=== PATIENT | male | born 1970 | race Caucasian/White ===

== ENCOUNTER 2018-11-18 15:13 | Inpatient (IN) | payer OTHER ==
[~2018-11-18] VITALS: Ht 182.9 cm; Wt 141.3 kg
[~2018-11-18 15:13] MED LIST: ASPERCREME1 EACH TP; DUO-KAPS1 CAP PO; FOLIC ACID 11 MG/TA1 PO; LIBRIUM 10M10 MG/CAP PO; MOTRIN 200200 MG/TAB PO; NICODERM C21 MG/PATC TD; PREDNISONE10 MG PO; PREDNISONE20 MG PO; RT ALBUTER2.5 MG/0.5 IH; THIAMINE 1100 MG/TAB PO; ZITHROMAX Z PA250 MG PO; ZOLOFT 25MG25 MG PO
[2018-11-18 16:14] LABS: INR 0.9 (0.8-3.0)
[2018-11-18 16:16] LABS: BASO % 0.2 % (0.0-2.0); EOS # 0.1 (0.0-0.7); EOS % 0.5 % (0-4.0); GRAN # 7.5 (1.4-6.5); GRAN % 76.9 % (42.2-75.2); HEMATOCRIT 42.8 % (42.0-52.0); HEMOGLOBIN 15.6 g/dl (13.5-18.0); LYMPH # 1.5 (1.2-3.4); LYMPH % 15.5 % (20.0-51.0); MEAN CELL VOLUME 95 fl (80.0-100.0); MEAN CORPUSCULAR HEMOGLOBIN 35 pg (27.0-31.0); MEAN CORPUSCULAR HGB CONC 36 g/dl (33.0-37.0); MEAN PLATELET VOLUME 9.1 fl (7.4-10.4); MONO # 0.6 (0.1-0.6); MONO % 6.5 % (1.7-9.3); PLATELET COUNT 145 K/mm3 (130-400); RED BLOOD COUNT 4.49 M/mm3 (4.20-5.60); REDCELL DISTRIBUTION WIDTH-CV 13.4 % (11.5-14.5)
[2018-11-18 16:19] LABS: ALANINE AMINOTRANSFERASE 42 U/L (21-72); ALBUMIN 4.3 gm/dL (3.5-5.0); ALKALINE PHOSPHATASE 70 U/L (50-136); ANION GAP 14 mmol/L (7-16); AST,SGOT 44 U/L (15-37); BILIRUBIN,TOTAL 0.9 mg/dL (0.0-1.0); BLOOD UREA NITROGEN 7 mg/dL (9-20); CALCIUM 9.5 mg/dL (8.4-10.2); CARBON DIOXIDE 23 mmol/L (22-30); CHLORIDE 103 mmol/L (98-107); GLUCOSE 90 mg/dL (74-106); LIPASE 35 U/L (23-300); SODIUM 140 mmol/L (137-145); TOTAL PROTEIN 7.4 gm/dL (6.4-8.2)
[2018-11-18 16:33] LABS: ALCOHOL(ethanol),MEDICAL < 10 mg/dL
[2018-11-18 20:32] LABS: ACETAMINOPHEN < 10 ug/mL (10-30); SALICYLATE < 1.0 mg/dL
[2018-11-18 20:47] VITALS: BP 146/92; PULSE 110; TEMP 98.7
[2018-11-18 21:03] LABS: TSH w REFLEX 0.602 uIU/mL (0.465-4.680)
[2018-11-18 21:55] VITALS: BP 148/89; PULSE 94; TEMP 99.4
[2018-11-19] VITALS (13 sets, daily range): BP systolic 106–168; BP diastolic 71–115; PULSE 88–120; TEMP 97.7–98.8
[2018-11-19 07:01] LABS: BASO % 0.3 % (0.0-2.0); EOS # 0.2 (0.0-0.7); EOS % 2.6 % (0-4.0); GRAN # 4.5 (1.4-6.5); HEMATOCRIT 40.8 % (42.0-52.0); HEMOGLOBIN 14.2 g/dl (13.5-18.0); LYMPH # 1.5 (1.2-3.4); LYMPH % 22.6 % (20.0-51.0); MEAN CELL VOLUME 98 fl (80.0-100.0); MEAN CORPUSCULAR HEMOGLOBIN 34 pg (27.0-31.0); MEAN CORPUSCULAR HGB CONC 35 g/dl (33.0-37.0); MEAN PLATELET VOLUME 9.2 fl (7.4-10.4); MONO # 0.4 (0.1-0.6); MONO % 6.2 % (1.7-9.3); PLATELET COUNT 112 K/mm3 (130-400); RED BLOOD COUNT 4.15 M/mm3 (4.20-5.60); REDCELL DISTRIBUTION WIDTH-CV 13.8 % (11.5-14.5)
[2018-11-19 07:09] LABS: ALBUMIN 3.5 gm/dL (3.5-5.0); BILIRUBIN,TOTAL 0.8 mg/dL (0.0-1.0); CALCIUM 8.5 mg/dL (8.4-10.2); CREATININE, serum 0.7 (0.66-1.25); TOTAL PROTEIN 6.2 gm/dL (6.4-8.2)
[2018-11-19 09:15] LABS: COLLECTION METHOD CLEAN CATCH
[2018-11-19 09:21] LABS: MUCOUS Present /lpf; PH 6 (5-8); SQUAMOUS EPITHELIAL 0-2 /hpf; URINE APPEARANCE Clear; URINE BACTERIA None Seen /hpf; URINE BILIRUBIN Negative (NEGATIVE); URINE BLOOD Negative (NEGATIVE); URINE COLOR Yellow; URINE GLUCOSE Negative (NEGATIVE); URINE KETONE Trace (NEGATIVE); URINE LEUKOCYTE ESTERASE Negative (NEGATIVE); URINE NITRATE Negative (NEGATIVE); URINE PROTEIN(semi-quant) Negative (NEGATIVE); URINE RBC 0-2 /hpf; URINE UROBILINOGEN Negative (NEGATIVE)
[2018-11-19 09:31] LABS: TRICYCLIC ANTIDEPRESS URINE NEGATIVE
[2018-11-20] VITALS (9 sets, daily range): BP systolic 125–188; BP diastolic 68–119; PULSE 100–115; TEMP 97.6–98.4
[2018-11-20 06:05] LABS: BASO % 0.2 % (0.0-2.0); EOS # 0.2 (0.0-0.7); EOS % 3.8 % (0-4.0); GRAN # 3.4 (1.4-6.5); GRAN % 60.7 % (42.2-75.2); HEMATOCRIT 42.7 % (42.0-52.0); HEMOGLOBIN 14.9 g/dl (13.5-18.0); LYMPH # 1.5 (1.2-3.4); LYMPH % 27.1 % (20.0-51.0); MEAN CELL VOLUME 98 fl (80.0-100.0); MEAN CORPUSCULAR HEMOGLOBIN 34 pg (27.0-31.0); MEAN CORPUSCULAR HGB CONC 35 g/dl (33.0-37.0); MEAN PLATELET VOLUME 9.3 fl (7.4-10.4); MONO # 0.4 (0.1-0.6); MONO % 7.8 % (1.7-9.3); PLATELET COUNT 118 K/mm3 (130-400); RED BLOOD COUNT 4.34 M/mm3 (4.20-5.60); REDCELL DISTRIBUTION WIDTH-CV 13.5 % (11.5-14.5)
[2018-11-20 06:30] LABS: ALBUMIN 3.8 gm/dL (3.5-5.0); BILIRUBIN,TOTAL 0.7 mg/dL (0.0-1.0); CALCIUM 9.5 mg/dL (8.4-10.2); CREATININE, serum 0.71 (0.66-1.25); MAGNESIUM 2.1 mg/dL (1.6-2.3); POTASSIUM 4.2 mmol/L (3.4-5.0); TOTAL PROTEIN 6.8 gm/dL (6.4-8.2)
[2018-11-21] VITALS (11 sets, daily range): BP systolic 134–181; BP diastolic 69–129; PULSE 93–118; TEMP 97.4–98.8
[2018-11-22 01:36] VITALS: BP 155/87; PULSE 104; TEMP 98.6
[2018-11-22 03:33] VITALS: BP 145/90; PULSE 88; TEMP 98
[2018-11-22 06:11] LABS: BASO % 0.2 % (0.0-2.0); EOS # 0.3 (0.0-0.7); GRAN # 3.3 (1.4-6.5); HEMATOCRIT 44.6 % (42.0-52.0); HEMOGLOBIN 15.3 g/dl (13.5-18.0); LYMPH % 32.4 % (20.0-51.0); MEAN CELL VOLUME 99 fl (80.0-100.0); MEAN CORPUSCULAR HEMOGLOBIN 34 pg (27.0-31.0); MEAN CORPUSCULAR HGB CONC 34 g/dl (33.0-37.0); MEAN PLATELET VOLUME 9.4 fl (7.4-10.4); MONO # 0.6 (0.1-0.6); MONO % 8.9 % (1.7-9.3); PLATELET COUNT 121 K/mm3 (130-400); RED BLOOD COUNT 4.53 M/mm3 (4.20-5.60); REDCELL DISTRIBUTION WIDTH-CV 13.8 % (11.5-14.5)
[2018-11-22 06:16] VITALS: BP 136/95; PULSE 99; TEMP 98.8
[2018-11-22 06:29] LABS: CALCIUM 9.5 mg/dL (8.4-10.2); CREATININE, serum 0.74 (0.66-1.25)
[2018-11-22 08:34] VITALS: BP 130/84; PULSE 112; TEMP 97.7
[2018-11-22] MEDS ORDERED: LOPRESSOR 225 MG/TAB PO (08:56)
[2018-11-22] MEDS ORDERED: ZOLOFT 25MG25 MG PO (08:56)
[2018-11-22] MEDS ORDERED: ZESTRIL 20MG TA20 MG PO (08:56)
[2018-11-22 11:44] VITALS: BP 127/82; PULSE 109; TEMP 97.9
== END 2018-11-22 12:28 | disposition home or self-care (01) | DRG 897 ==
LOC: COL.ER 15:13 → MEDICAL 18:30 → SURG 18:30 → ICU 11-19 15:36 → MEDICAL 11-20 12:06
PROVIDERS: Emergency Medicine; Nurse Practitioner Family; Physician Assistant; ADMIT Internal Medicine
DX: F10.231 Alcohol dependence with withdrawal delirium (principal); Z68.41 Body mass index [BMI] 40.0-44.9, adult; Y90.0 Blood alcohol level of less than 20 mg/100 ml; F41.9 Anxiety disorder, unspecified; F32.9 Major depressive disorder, single episode, unspecified; I49.8 Other specified cardiac arrhythmias; I10 Essential (primary) hypertension; Z72.0 Tobacco use; E83.42 Hypomagnesemia; J44.9 Chronic obstructive pulmonary disease, unspecified; G47.30 Sleep apnea, unspecified; Z88.0 Allergy status to penicillin; R45.1 Restlessness and agitation; Z91.120 Patient's intentional underdosing of medication regimen due to financial hardship; E66.9 Obesity, unspecified
CPT/HCPCS: 99223-AI; 99232-AI; 99233-AI; 99239; C9113; J0360; J1650; J2060; J2405; J7030

== ENCOUNTER 2018-12-11 23:41 | Inpatient (IN) | payer OTHER ==
[~2018-12-11] VITALS: Ht 182.9 cm; Wt 117.7 kg
[~2018-12-11 23:41] MED LIST changes: +LOPRESSOR 225 MG/TAB PO; +ZESTRIL 20MG TA20 MG PO
[2018-12-12] VITALS (43 sets, daily range): BP systolic 109–165; BP diastolic 52–100; PULSE 94–122; TEMP 97.4–99.2
[2018-12-12 00:10] LABS: BASO % 0.4 % (0.0-2.0); EOS # 0.2 (0.0-0.7); EOS % 2.2 % (0-4.0); GRAN # 3.3 (1.4-6.5); GRAN % 46.9 % (42.2-75.2); HEMATOCRIT 43.4 % (42.0-52.0); HEMOGLOBIN 15.7 g/dl (13.5-18.0); LYMPH # 3.2 (1.2-3.4); MEAN CELL VOLUME 95 fl (80.0-100.0); MEAN CORPUSCULAR HEMOGLOBIN 34 pg (27.0-31.0); MEAN CORPUSCULAR HGB CONC 36 g/dl (33.0-37.0); MEAN PLATELET VOLUME 8.8 fl (7.4-10.4); MONO # 0.4 (0.1-0.6); MONO % 5.2 % (1.7-9.3); PLATELET COUNT 179 K/mm3 (130-400); RED BLOOD COUNT 4.58 M/mm3 (4.20-5.60); REDCELL DISTRIBUTION WIDTH-CV 12.6 % (11.5-14.5)
[2018-12-12 00:27] LABS: ALANINE AMINOTRANSFERASE 48 U/L (21-72); ALBUMIN 4.6 gm/dL (3.5-5.0); ALKALINE PHOSPHATASE 68 U/L (50-136); ANION GAP 17 mmol/L (7-16); AST,SGOT 39 U/L (15-37); BILIRUBIN,TOTAL 0.5 mg/dL (0.0-1.0); BLOOD UREA NITROGEN 10 mg/dL (9-20); CARBON DIOXIDE 22 mmol/L (22-30); CHLORIDE 103 mmol/L (98-107); CREATININE, serum 0.88 (0.66-1.25); GLUCOSE 80 mg/dL (74-106); POTASSIUM 4.7 mmol/L (3.4-5.0); SODIUM 142 mmol/L (137-145); TOTAL PROTEIN 7.8 gm/dL (6.4-8.2)
[2018-12-12 00:38] LABS: TROPONIN-I < 0.012 ng/mL (0.000-0.035)
--- NOTE | 2018-12-12 03:25 | NUR ---
Patient arrived from ER via w/c. Patient very tearful, stating he is a failure. Stated, "I want to pack up my shit and move to [place]. My kids and grandkids are there." When asked if he had plans to end his life, he said he contemplated it, but a friend stopped him. He said he would end his life with a gun, which he mentioned there are several guns in his home. He also mentioned that he wanted to visit his Mom and Dad. And when asked where they live, he stated, "in the ground." Patient given emotional support. Will notify SHITAL Villarreal of statements regarding ending his life.
--- NOTE | 2018-12-12 04:00 | NUR ---
Suicide precautions implemented per hospital protocol. Patient in bed, resting. Patient understands reason for suicide precautions, and is being cooperative. Also states he will not harm himself. 1:1 supervision.
--- NOTE | 2018-12-12 05:02 | NUR ---
PO antibiotic held until patient is more awake to drink full glass of water with medication.
--- NOTE | 2018-12-12 07:55 | NUR ---
Pt assessment complete. Pt is sleeping in bed upon entry, he arouses to voice. He currently denies any pain. Apneic episodes witnessed, discussed the use of oxygen with patient who reports this has helped in the past, 2L O2 via NC placed on patient. Pt encouraged to eat and drink. Sitter currently in with patient. No needs at this time. Call light within reach.
[2018-12-12 07:56] LABS: INR 0.9 (0.8-3.0); PROTHROMBIN TIME 10.9 SECONDS (9.7-12.8)
[2018-12-12 07:59] LABS: PARTIAL THROMBOPLASTIN TIME 28.5 SECONDS (26.0-37.0)
--- NOTE | 2018-12-12 13:04 | NUR ---
SW attended clinical rounds. Patient is on suicide precautions. SW will follow up with patient after psych consult.
[2018-12-12 13:22] LABS: TRICYCLIC ANTIDEPRESS URINE NEGATIVE
--- NOTE | 2018-12-12 14:52 | NUR ---
PATIENT JUST GOT ADIVAN, AND TOO SLEEPY FOR THERAPUTIC RESP TX.
--- NOTE | 2018-12-12 16:02 | NUR ---
No ativan given, Dr. Woodward requested patient not to have ativan prior to Psych consult.
--- NOTE | 2018-12-12 19:50 | NUR ---
Pt resting in bed with eyes closed. NS infusing at 125mL/hr. IV site in R hand.
--- NOTE | 2018-12-12 23:45 | NUR ---
Arrived to the unit via stretcher; able to transfer to ICU bed without difficulty. Attached to all monitors. Patient partially alert and oriented and slightlly drowsy. Falls asleep quickly but awakens easily. able to cooperate with assessment and follow commands. Not able to answer all questions correctly about current date. This nurse asked if patient was still having thoughts of self harm. Patient did not respond and pretended to be asleep. Asked if he could hear this nurse and continued to not respond. This nurse then asked if patient just did not wish to respond to that question. Patient shook his head yes. Sitter is currenlty at bedside. Will continue to monitor.
[2018-12-13] VITALS (427 sets, daily range): BP systolic 138–152; BP diastolic 93–106; PULSE 89–108; TEMP 96.8–98.7; O2SAT 38–100
--- NOTE | 2018-12-13 01:00 | NUR ---
Hospitalist notified that patient refused to answer question about still having thoughts of self-harm. Requested to ensure that he has a sitter at all times. Sitter is currently at bedside.
--- NOTE | 2018-12-13 03:06 | NUR ---
Has history of sleep apnea. Noted to have short periods of apneic breathing characteristic of OFE. 02 desats from mid 90's to low 80's at these times. Currenlty on 2L NC. Patient awakens on commands and is slightly drowsy and A&0 X 3 per baseline since arrival to unit. Hospitalist notified; received order for CPAP/BIPAP.
--- NOTE | 2018-12-13 03:30 | NUR ---
Refused to keep on CPAP; hospitalist notified. Placed back on 2L NC.
[2018-12-13 05:46] LABS: HEMATOCRIT 40.7 % (42.0-52.0); HEMOGLOBIN 14.2 g/dl (13.5-18.0); MEAN CELL VOLUME 97 fl (80.0-100.0); MEAN CORPUSCULAR HEMOGLOBIN 34 pg (27.0-31.0); MEAN CORPUSCULAR HGB CONC 35 g/dl (33.0-37.0); MEAN PLATELET VOLUME 9.4 fl (7.4-10.4); PLATELET COUNT 127 K/mm3 (130-400); RED BLOOD COUNT 4.21 M/mm3 (4.20-5.60); REDCELL DISTRIBUTION WIDTH-CV 12.7 % (11.5-14.5)
--- NOTE | 2018-12-13 05:58 | NUR ---
Patient's clothing, wallet with $1.00 dollar and cellphone placed in pt belonging bag and placed in locked cabinet in dirty utility closet in ICU unit.
[2018-12-13 05:59] LABS: BILIRUBIN,TOTAL 0.5 mg/dL (0.0-1.0); CALCIUM 9.3 mg/dL (8.4-10.2); CREATININE, serum 0.69 (0.66-1.25); MAGNESIUM 2.3 mg/dL (1.6-2.3); POTASSIUM 4.7 mmol/L (3.4-5.0); TOTAL PROTEIN 6.8 gm/dL (6.4-8.2)
[2018-12-13 06:10] LABS: BAND 6 % (0-10); LYMPHOCYTE 13 % (20.0-51.0); NEUTROPHILS 81 % (42.0-75.2); PLATELET ESTIMATE NORMAL (NORMAL)
--- NOTE | 2018-12-13 07:10 | NUR ---
Report recieved from Petra KARIMI. Patient sleeping in bed at this time. Sitter in room with patient.
--- NOTE | 2018-12-13 08:45 | NUR ---
AIVS here for PICC line placement. Patient agreeable, tolerates procedure well.
--- NOTE | 2018-12-13 15:00 | NUR ---
Up and walking in hallway with HARDENING MACHINE OPERATOR HELPER. Instructed to stay in ICU/Express unit, voices ok. Patient denies thoughts of self harm at this time. "Just sad really." Will continue to monitor.
--- NOTE | 2018-12-13 15:21 | NUR ---
SW met with patient to discuss discharge planning. Patient lives alone in [place]. He reports he works for the [employer] laying [employer] but that he is unable to work due to his depression making it difficult to get up in the morning. He said his last drink was monday and he drank half a gallon. Patients PCP is Dr ivey and he obtains his meds from [facility] . He has two children that both live in [place], Meredith and Tito who he has not notified he is in the hosptial and reports he doesnt want them to know because he doesn't want them to feel like they need to come help him again. His goal is to move to [place] to be close to them and reports them and his ex are willing to help the patient find a home and job once he gets there. Patient reports he is just lacking the motivation to get his stuff sold. Patient reports he does struggle with paying for medications and that we provided a Med voucher for him last time ($20.81). He also says that he has been to inpatient psych in [facility], and [place] and that they have not helped him in the past. SW discussed different options with him however patient was not ready to make a decision at this time. SW will follow up tomorrow.
--- NOTE | 2018-12-13 16:00 | NUR ---
Patient informed of plans for transfer back to medical floor, states ok. Asked patient how he was feeling "better, but just sad. I think the plan is to go to [place] with my kids and grandkids, that's what I need."
--- NOTE | 2018-12-13 17:32 | NUR ---
Report called to Hany KARIMI.
--- NOTE | 2018-12-13 17:41 | NUR ---
Transferred to Medical room 309 via wheel chair, belongings moved with patient. Hany KARIMI and Nicolle MAN there to accept patient.
--- NOTE | 2018-12-13 18:15 | NUR ---
Patient arrived to the Medical floor from ICu at this time, he is in room 309, alert/oriented, vital signs stable/ still hypertensive, he is up in the recliner and has ordered dinner, denies other needs
--- NOTE | 2018-12-13 20:02 | NUR ---
Pt given 2mg Ativan IV for restlessness, tearful, and c/o head hurting and states "my head has things just going around and around." Lights out and resting in bed. Call light in reach.
--- NOTE | 2018-12-13 20:48 | NUR ---
Pt c/o itching all over. Hands are the worst per pt. Pt has hives and red areas all over trunk, back and upper chest. Benadryl 25mg IV given. Will continue to monitor. Call light at side. Sitting up in chair.
--- NOTE | 2018-12-13 22:42 | NUR ---
PT WAS ASKED IF HE INTENDED TO HURT HIMSELF AND HE REPLIED NO. RESTING IN BED, ATIVAN 2MG IV GIVEN SLOWLY. O2 ON AFTER PT HAD AMBULATED A DISTANCE AND WAS FEELING SOA. O2 PER NC AT 2L. ALARM SET ON BED. UPDATE GIVEN TO PATRICIA. WILL CONTINUE TO MONITOR.
[2018-12-14] VITALS (11 sets, daily range): BP systolic 129–157; BP diastolic 83–102; PULSE 97–125; TEMP 98.1–98.7
--- NOTE | 2018-12-14 02:38 | NUR ---
Pt awake and agitated. Detox score 7. Valium 5mg IV given. Hives noted over entire body prior to giving valium. Josefa notified. Order Solu Medrol 125mg. Gown taken off. Pt rests in bed.
[2018-12-14 06:19] LABS: BASO % 0.3 % (0.0-2.0); EOS % 0.1 % (0-4.0); GRAN # 6.6 (1.4-6.5); HEMATOCRIT 42.2 % (42.0-52.0); HEMOGLOBIN 14.6 g/dl (13.5-18.0); LYMPH # 1.1 (1.2-3.4); LYMPH % 13.8 % (20.0-51.0); MEAN CELL VOLUME 98 fl (80.0-100.0); MEAN CORPUSCULAR HEMOGLOBIN 34 pg (27.0-31.0); MEAN CORPUSCULAR HGB CONC 35 g/dl (33.0-37.0); MEAN PLATELET VOLUME 9.8 fl (7.4-10.4); MONO # 0.2 (0.1-0.6); MONO % 2.5 % (1.7-9.3); PLATELET COUNT 122 K/mm3 (130-400); REDCELL DISTRIBUTION WIDTH-CV 12.9 % (11.5-14.5)
[2018-12-14 06:41] LABS: CALCIUM 9.4 mg/dL (8.4-10.2); CREATININE, serum 0.75 (0.66-1.25); MAGNESIUM 1.9 mg/dL (1.6-2.3); POTASSIUM 3.8 mmol/L (3.4-5.0)
--- NOTE | 2018-12-14 08:12 | NUR ---
Pt had a restless night. Had Ativan 2mg IV x2 and Benadryl 25mg IV x2. About an hour after each Ativan dose given, pt broke out with hives and red rash over his whole body. Worse on torso and arms. Josefa notified. Pt walks to doorway and asks to go out to his vehicle to have a cigarette. Explained to him that he was not allowed to leave the 3rd floor. Valium 5mg IV given and Solu Medrol 125mg given IV for severe rash/hives. Protonix 20mg IV given as orddered and Solu Medrol 125mg IV given as ordered. Rash still visible but maybe a little less prominent. Report given to TREV Wolf.
--- NOTE | 2018-12-14 09:45 | NUR ---
Pt assessment completed and charted. Pt resting in bed watching tv. Pt scoring 4 on detox scale due to HR/BP and sleepless night. C/o pain in his head, "feels like its spinning". Denies SOB, dizziness, N/V, vision changes. Pt indpendent in room, on room air. TIKA PICC flushes with good blood return. Pt appears to have some mild anxiety, but mostly calm. Per shift leader nurse pt had reaction to ativan. Hives on abdomen, chest, arms, back have improved from overnight. Some redness noted, pt denies itching. Morning medications administered per JUL. No other needs at this time. Call light within reach.
--- NOTE | 2018-12-14 10:41 | NUR ---
Initial visit (this stay); Axel and had an honest conversation about placing his family's needs first and the importance of him being sober and present for them. Director [employer] offered God's blessings and has Axel in her prayers.
--- NOTE | 2018-12-14 13:03 | NUR ---
patient has scored a 4, 5, and 6 on the detox scale due to heart rate and/or BP. No IV valium was available, called pharmacy for restock. Pt received dose at 1145. This nurse did not administered other doses after scoring 6 and 5 for 10 and 12 interventions. Will see how patient is at 1400 detox check. patient has been between sleeping in bed and sitting in chair. Pt has mild anxiety prior to valium administration.
--- NOTE | 2018-12-14 19:48 | NUR ---
Pt had mostly uneventful day. Received PO dose of Valium per MAR around 1500 this afternoon. Slept hard shortly after for awhile. Report given to TREV Go rn internal medicine, per Abbi she will administer dose of Valium. Pt was receiving breathing treatment at time of visit in room. Received multiple calls from tele throughout the day in regards to patients parameters. Pt was up in the 118s-120s. Valium was late due to not having it available in [facility]. Pt has been up and around room, sitting in chair and sleeping. Pt was sleeping pretty hard/snoring after 1500 dose of valium. parameters were changed to 130 for high limit. No other needs at this time.
--- NOTE | 2018-12-15 01:18 | NUR ---
Pt has had a fairly quiet first half of this shift. Has been up ambulating in hallway on this floor. Has been scoring a 5. Request and given Benadryl 25mg IV fpr sleep and states he just starts itching his skin. for sleep and states he just starts itching his skin. No prominent rash noted at this time. Will continue to monitor.
[2018-12-15 03:10] VITALS: BP 112/65; PULSE 90; TEMP 97.6
--- NOTE | 2018-12-15 04:35 | NUR ---
Pt scores a 3 on Detox scale. No Valium given. Awakes in good mood. States he has been sleeping very well.
[2018-12-15 05:51] VITALS: BP 133/88; PULSE 95; TEMP 98.3
[2018-12-15 06:43] LABS: CALCIUM 9.7 mg/dL (8.4-10.2); CREATININE, serum 0.91 (0.66-1.25); POTASSIUM 3.4 mmol/L (3.4-5.0)
[2018-12-15 08:20] VITALS: BP 122/84; PULSE 106; TEMP 98.1
--- NOTE | 2018-12-15 08:35 | NUR ---
Assessment completed, alert/oriented, vital signs stable, denies pain or discomfort, heart Regular rythm/ slightly tachycardic, CIWA score 2-3, he is sitting up eating breakfast, denies needs, discharge planning
[2018-12-15] MEDS ORDERED: MELAT3MGTAB PO (12:13)
[2018-12-15] MEDS ORDERED: NATURE'S BLEND100 M2 PO (12:13)
[2018-12-15] MEDS ORDERED: MEN'S MULTIVIT1 EAC1 PO (12:13)
[2018-12-15] MEDS ORDERED: ZOLOFT 50MG50 MG PO (12:13)
[2018-12-15] MEDS ORDERED: VALIUM 5MG T5 MG/TAB PO (12:13)
[2018-12-15] MEDS ORDERED: FOLIC ACID 11 MG/TA1 PO (12:13)
--- NOTE | 2018-12-15 13:47 | NUR ---
Patient was issues voucher for medications to be obtained at [facility]. SW faxed scripts and educated client on vouher process. Copy of voucher and face sheet was place in chart. Educated patient on community resources.
--- NOTE | 2018-12-15 14:34 | NUR ---
Discharge instructions reviewed with the patient, instructed to follow up with PCP and [facility] as instructed, instructed to quit drinkin ETOH, discussed new meds and insturcted to take as ordered, social work has provided a voucher for him to get his meds at [facility], PICC removed and discharge instructions reviewed, patient has a safetyl plan in place / moving to [place] after her can make a little money/ he stated he is going back to work on monday, patient verbalized understanding of care instrucitons, I personally escorted him out to his vehicle
== END 2018-12-15 14:38 | disposition home or self-care (01) | DRG 191 ==
LOC: COL.ER 23:41 → MEDICAL 12-12 02:30 → ICU 12-12 02:30 → MEDICAL 12-12 02:31 → ICU 12-12 23:59 → MEDICAL 12-13 15:37 → ICU 12-13 15:59 → MEDICAL 12-13 18:07
PROVIDERS: Emergency Medicine; Nurse Practitioner; Nurse Practitioner Family; Physician Assistant; ADMIT Family Medicine
PROC: 02HV33Z Insertion of Infusion Device into Superior Vena Cava, Percutaneous Approach (ICD-10-PCS; principal; 2018-12-13)
DX: J44.1 Chronic obstructive pulmonary disease with (acute) exacerbation (principal); R45.851 Suicidal ideations; F10.239 Alcohol dependence with withdrawal, unspecified; J44.9 Chronic obstructive pulmonary disease, unspecified; I10 Essential (primary) hypertension; F32.9 Major depressive disorder, single episode, unspecified; E83.42 Hypomagnesemia; E66.9 Obesity, unspecified; G47.30 Sleep apnea, unspecified; L50.9 Urticaria, unspecified; G47.00 Insomnia, unspecified; F41.9 Anxiety disorder, unspecified; T42.4X5A Adverse effect of benzodiazepines, initial encounter; Y92.239 Unspecified place in hospital as the place of occurrence of the external cause; F17.210 Nicotine dependence, cigarettes, uncomplicated; Z88.0 Allergy status to penicillin; Z91.14 Patient's other noncompliance with medication regimen
CPT/HCPCS: 99222-AI; 99232-AI; 99233-AI; 99239; C1751; J1200; J1650; J1885; J2060; J2405; J2930; J3360; J3411; J3475; J7030

== ENCOUNTER 2018-12-19 00:35 | Emergency (ER) | payer OTHER ==
[~2018-12-19] VITALS: Ht 182.9 cm; Wt 136.4 kg
[~2018-12-19 00:35] MED LIST changes: +MELAT3MGTAB PO; +MEN'S MULTIVIT1 EAC1 PO; +NATURE'S BLEND100 M2 PO; +VALIUM 5MG T5 MG/TAB PO; +ZOLOFT 50MG50 MG PO
[2018-12-19 00:41] VITALS: BP 82/36; PULSE 118; TEMP 99.8
[2018-12-19 01:21] LABS: BASO % 0.3 % (0.0-2.0); EOS # 0.3 (0.0-0.7); GRAN # 5.3 (1.4-6.5); GRAN % 52.8 % (42.2-75.2); HEMATOCRIT 39.8 % (42.0-52.0); LYMPH # 3.5 (1.2-3.4); LYMPH % 35.2 % (20.0-51.0); MEAN CELL VOLUME 97 fl (80.0-100.0); MEAN CORPUSCULAR HEMOGLOBIN 34 pg (27.0-31.0); MEAN CORPUSCULAR HGB CONC 35 g/dl (33.0-37.0); MEAN PLATELET VOLUME 9.5 fl (7.4-10.4); MONO # 0.8 (0.1-0.6); MONO % 8.1 % (1.7-9.3); PLATELET COUNT 145 K/mm3 (130-400); RED BLOOD COUNT 4.09 M/mm3 (4.20-5.60)
[2018-12-19 01:44] LABS: ALANINE AMINOTRANSFERASE 86 U/L (21-72); ALCOHOL(ethanol),MEDICAL 269 mg/dL; ALKALINE PHOSPHATASE 54 U/L (50-136); ANION GAP 11 mmol/L (7-16); AST,SGOT 36 U/L (15-37); BILIRUBIN,TOTAL 0.3 mg/dL (0.0-1.0); BLOOD UREA NITROGEN 16 mg/dL (9-20); CALCIUM 9.4 mg/dL (8.4-10.2); CARBON DIOXIDE 24 mmol/L (22-30); CHLORIDE 109 mmol/L (98-107); CREATININE, serum 0.99 (0.66-1.25); GLUCOSE 87 mg/dL (74-106); POTASSIUM 3.9 mmol/L (3.4-5.0); SODIUM 144 mmol/L (137-145); TOTAL PROTEIN 6.8 gm/dL (6.4-8.2)
[2018-12-19 01:45] LABS: ACETAMINOPHEN < 10 ug/mL (10-30); SALICYLATE < 1.0 mg/dL
[2018-12-19] MEDS ORDERED: LIBRIUM 25M25 MG/CAP PO (11:30)
[2018-12-19] MEDS ORDERED: NEURONTIN300 MG/CAP PO (11:54)
[2018-12-19] MEDS ORDERED: ZOFRAN ODT8 MG PO (11:54)
== END 2018-12-19 02:07 | disposition left against medical advice (07) ==
LOC: COL.ER 00:35
PROVIDERS: Nurse Practitioner
DX: F10.10 Alcohol abuse, uncomplicated (principal); I10 Essential (primary) hypertension; J44.9 Chronic obstructive pulmonary disease, unspecified; F17.210 Nicotine dependence, cigarettes, uncomplicated; Y90.8 Blood alcohol level of 240 mg/100 ml or more

== ENCOUNTER 2018-12-19 02:58 | Emergency (ER) | payer OTHER ==
[~2018-12-19] VITALS: Ht 182.9 cm; Wt 136.4 kg
[2018-12-19 03:04] VITALS: TEMP 99
--- NOTE | 2018-12-19 09:25 | NUR ---
field crop ii farmworker met with patient to discuss alcohol treatment. Patient states he has not been able to make efforts to move to [place], as he previously stated in a recent hospitalization. Patient states he has rented his home for 12 years and he has "alot of stuff" to take care of before he can move. Worker offers detox and patient states he doesn't want to go to detox, he just want's to go home and leave everyone alone. Worker stressed that our job is to help people and that if he changes his mind about detox placement or alcohol treatment, he should call the hospital and we can help him. Worker collaborated with nursing regarding the above information.
[2018-12-19 11:24] VITALS: BP 162/93; PULSE 103
[2018-12-19] MEDS ORDERED: LIBRIUM 25M25 MG/CAP PO (11:30)
[2018-12-19] MEDS ORDERED: ZOFRAN ODT8 MG PO (11:54)
[2018-12-19] MEDS ORDERED: NEURONTIN300 MG/CAP PO (11:54)
== END 2018-12-19 12:15 | disposition home or self-care (01) ==
LOC: COL.ER 02:58
DX: F10.229 Alcohol dependence with intoxication, unspecified (principal); F10.239 Alcohol dependence with withdrawal, unspecified; I10 Essential (primary) hypertension; J44.9 Chronic obstructive pulmonary disease, unspecified; F17.210 Nicotine dependence, cigarettes, uncomplicated; Y90.2 Blood alcohol level of 40-59 mg/100 ml; Z86.718 Personal history of other venous thrombosis and embolism
CPT/HCPCS: J3411; J7030

== ENCOUNTER 2019-04-22 18:44 | Inpatient (IN) | payer SELFPAY ==
[~2019-04-22] VITALS: Ht 182.9 cm; Wt 133.1 kg
[~2019-04-22 18:44] MED LIST changes: +LIBRIUM 25M25 MG/CAP PO; +NEURONTIN300 MG/CAP PO; +ZOFRAN ODT8 MG PO
[2019-04-22 23:15] VITALS: BP 158/96; PULSE 119; TEMP 97.9
[2019-04-23] VITALS (8 sets, daily range): BP systolic 118–158; BP diastolic 79–111; PULSE 74–119; TEMP 97.8–98.1
[2019-04-23 00:50] LABS: INR 0.9 (0.8-3.0); PROTHROMBIN TIME 10.7 SECONDS (9.7-12.8)
[2019-04-23 00:51] LABS: ALBUMIN 4.2 gm/dL (3.5-5.0); BILIRUBIN,TOTAL 0.7 mg/dL (0.0-1.0); CALCIUM 9.1 mg/dL (8.4-10.2); CREATININE, serum 0.74 (0.66-1.25); POTASSIUM 4.2 mmol/L (3.4-5.0); TOTAL PROTEIN 7.2 gm/dL (6.4-8.2)
[2019-04-23 00:53] LABS: PARTIAL THROMBOPLASTIN TIME 28.9 SECONDS (26.0-37.0)
[2019-04-23 00:55] LABS: HEMATOCRIT 41.7 % (42.0-52.0); HEMOGLOBIN 15.1 g/dl (13.5-18.0); MEAN CELL VOLUME 96 fl (80.0-100.0); MEAN CORPUSCULAR HEMOGLOBIN 35 pg (27.0-31.0); MEAN CORPUSCULAR HGB CONC 36 g/dl (33.0-37.0); MEAN PLATELET VOLUME 9.4 fl (7.4-10.4); PLATELET COUNT 138 K/mm3 (130-400); RED BLOOD COUNT 4.36 M/mm3 (4.20-5.60); REDCELL DISTRIBUTION WIDTH-CV 11.9 % (11.5-14.5)
[2019-04-23 01:34] LABS: BAND 1 % (0-10); LYMPHOCYTE 10 % (20.0-51.0); NEUTROPHILS 88 % (42.0-75.2); PLATELET ESTIMATE NORMAL (NORMAL)
--- NOTE | 2019-04-23 01:43 | NUR ---
Patient placed on O2 via NC at 0123, called STEAM TABLE ATTENDANT to initiate CPAP at this time. Patient reports sleep apnea at home and periods of apnea with drops in SpO2 noted prior to CPAP initiation. Patient also reports waking up gasping for breath.
[2019-04-23] MEDS ORDERED: 00186-0370-20 IH (02:12)
[2019-04-23] MEDS ORDERED: DOXYCYCLINE HY100 MG PO (02:13)
[2019-04-23] MEDS ORDERED: LEXAPRO 10MG10 MG PO (02:13)
[2019-04-23] MEDS ORDERED: REMERON 15M15 MG/TA1 PO (02:14)
[2019-04-23] MEDS ORDERED: MUCINEX 60600 MG/TA1 PO (02:14)
[2019-04-23] MEDS ORDERED: NICODERM C14 MG/PATC TD (02:15)
[2019-04-23] MEDS ORDERED: NATURE'S BLEND100 M2 PO (02:16)
--- NOTE | 2019-04-23 05:35 | NUR ---
Patient resting in bed with eyes closed, tremors noticeable when arms are lifted. Patient able to use call light appropriately, tolearting CPAP with nose mask well. Patient reports having a reaction to valium at previous facility so none given for CIWA scores, Precedex infusing well-patient tolerating well. No complaints of increased pain, still complains of nausea when awake, able to void in urinal with stand-by assist.
--- NOTE | 2019-04-23 07:45 | NUR ---
Bedside report given to Mary, care transferred at this time
--- NOTE | 2019-04-23 08:59 | NUR ---
Restless, BP 154/111, making phone calls to work, and others. Did not pay electric bill, has a dog in the home, says he has people to take care of the animal. Titrating precedex for withdrawal sx.
--- NOTE | 2019-04-23 10:36 | NUR ---
AUTOMOTIVE PROJECT ENGINEER student met with the patient to discuss a discharge plan. The patient lives alone in [place]. The patient has a cane and reports independence with ADLs. The patient's PCP is Dr. Burgos and patient recevies medication from [facility] in [place] or [facility] in [place]. The patient will need a medication voucher upon discharge. The patient is self-pay. The patient is to meet with financial counselor. The patient does not have advanced directives in the EMR. The patient plans to return home upon discharge. clinical services consultant will continue to follow to ensure a safe discharge.
[2019-04-23 19:12] LABS: COLLECTION METHOD CLEAN CATCH
[2019-04-23 19:20] LABS: PH 7 (5-8); SQUAMOUS EPITHELIAL None Seen /hpf; URINE APPEARANCE Clear; URINE BACTERIA None Seen /hpf; URINE BILIRUBIN Negative (NEGATIVE); URINE BLOOD Negative (NEGATIVE); URINE COLOR Yellow; URINE GLUCOSE Negative (NEGATIVE); URINE KETONE Negative (NEGATIVE); URINE LEUKOCYTE ESTERASE Negative (NEGATIVE); URINE NITRATE Negative (NEGATIVE); URINE PROTEIN(semi-quant) Negative (NEGATIVE); URINE RBC 0-2 /hpf; URINE UROBILINOGEN Negative (NEGATIVE); URINE WBC 0-2 /hpf
--- NOTE | 2019-04-23 19:30 | NUR ---
Bedside report received from TREV Hernandez. Patient anxious and complaining of headache. See EMAR for medication administration. All lines reviewed and care assumed at this time.
--- NOTE | 2019-04-23 23:00 | NUR ---
Patient complaining of pressure in CPAP being too much, called CASE CONSULTANT to adjust. Patient otherwise resting comfortably in bed, see [facility] flowsheet for monitoring. IV infusing well, patient uses urinal at bedside per self without incident and uses call light appropriately. Patient teary at times, states he misses his kids and is disappointed that he cannot visit them for Thanksgiving but understanding detox is a process. This RN gave patient support and encouraged him to share is feelings with staff.
[2019-04-24] VITALS (11 sets, daily range): BP systolic 131–163; BP diastolic 88–126; PULSE 61–130; TEMP 97.4–100.3
--- NOTE | 2019-04-24 03:00 | NUR ---
Patient resting in bed quietly, wears CPAP on and off throughout night-states the pressure hurts sometimes. IV infusing well, other sites flush well-saline locked. Patient uses urinal at bedside without incident, uses call light appropriately.
[2019-04-24 05:05] LABS: GRAN # 5.3 (1.4-6.5); GRAN % 88.9 % (42.2-75.2); HEMATOCRIT 41.9 % (42.0-52.0); HEMOGLOBIN 14.6 g/dl (13.5-18.0); LYMPH # 0.5 (1.2-3.4); LYMPH % 8.4 % (20.0-51.0); MEAN CELL VOLUME 99 fl (80.0-100.0); MEAN CORPUSCULAR HEMOGLOBIN 35 pg (27.0-31.0); MEAN CORPUSCULAR HGB CONC 35 g/dl (33.0-37.0); MEAN PLATELET VOLUME 9.7 fl (7.4-10.4); MONO # 0.2 (0.1-0.6); MONO % 2.5 % (1.7-9.3); PLATELET COUNT 125 K/mm3 (130-400); RED BLOOD COUNT 4.23 M/mm3 (4.20-5.60); REDCELL DISTRIBUTION WIDTH-CV 11.9 % (11.5-14.5)
[2019-04-24 05:16] LABS: ALBUMIN 3.8 gm/dL (3.5-5.0); BILIRUBIN,TOTAL 0.5 mg/dL (0.0-1.0); CALCIUM 8.9 mg/dL (8.4-10.2); CREATININE, serum 0.86 (0.66-1.25); MAGNESIUM 2.2 mg/dL (1.6-2.3); POTASSIUM 4.4 mmol/L (3.4-5.0); TOTAL PROTEIN 6.7 gm/dL (6.4-8.2)
--- NOTE | 2019-04-24 06:13 | NUR ---
Patient reports left arm swelling and pain. Upon assessment it is noted that the IV site has dislodged and infiltrated surrounding tissue. Site discontinued, bandaged, and covered with warm blanket. During this incident, the patient grew agitated and tearful, stating he is "tired" and "can't handle this anymore". Given verbal encouragement as well as PRN oral medication and IV medication increased per protocol. Will continue to monitor.
--- NOTE | 2019-04-24 07:17 | NUR ---
Bedside report given to TREV Julio and TREV Dkue. All lines reviewed and care transferred at this time.
--- NOTE | 2019-04-24 08:51 | NUR ---
PATIENT AWAKE B/P ELEVATED, HAS FULL MEAL DENIES PAIN BACK TO SLEEP
--- NOTE | 2019-04-24 12:00 | NUR ---
PATIENT ASLEEP SNORING READJUSTED,
--- NOTE | 2019-04-24 15:42 | NUR ---
special services coordinator received a referral to the patient due to he is needing a CPAP because he cannot afford one. FLIGHT DISPATCHER student contacted [facility] and they report the patient will have to fill out a financial assistance application. FLIGHT DISPATCHER student as not been able to rouse the patient in order to meet with him. Helene, financial counselor has not been successful to rouse the patient to fill out a Medicaid application. special services coordinator will continue follow.
--- NOTE | 2019-04-24 19:25 | NUR ---
RECEIVED REPORT FROM TREV MAYEN. PT SITTING UP IN BED WATCHING TV. PT STATES HE DOES FEEL A LITTLE ANXIOUS CURRENTLY BUT IS TRYING TO CALM HIMSELF. HR NOTED TO BE 110s. CALL LIGHT WITHIN REACH. DENIES ANY NEEDS AT THIS TIME.
[2019-04-25] VITALS (11 sets, daily range): BP systolic 113–155; BP diastolic 74–110; PULSE 86–134; TEMP 98–99
--- NOTE | 2019-04-25 03:20 | NUR ---
PT ASKS NURSE IF THERE IS ANYTHING ELSE HE CAN HAVE TO HELP HIM SLEEP. DISCUSSED WITH PT ABOUT TIME OF NIGHT IT IS AND HOW IN REPORT NURSE WAS TOLD THAT HE SLEPT MAJORITY OF THE DAY YESTERDAY AND NOW HAS BEEN UP ALL NIGHT. DISCUSSED THE CONCERN OF REVERSING NIGHT AND DAY TIME SLEEP PATTERNS. PT VERBALIZED UNDERSTANDING BUT STATES "I NEED SOMETHING TO HELP ME SLEEP, I GOTTA SLEEP NOW." SEE MAR.
[2019-04-25 04:53] LABS: BASO % 0.1 % (0.0-2.0); GRAN # 7.8 (1.4-6.5); GRAN % 85.6 % (42.2-75.2); HEMATOCRIT 44.1 % (42.0-52.0); HEMOGLOBIN 15.5 g/dl (13.5-18.0); LYMPH # 0.8 (1.2-3.4); LYMPH % 9.3 % (20.0-51.0); MEAN CELL VOLUME 96 fl (80.0-100.0); MEAN CORPUSCULAR HEMOGLOBIN 34 pg (27.0-31.0); MEAN CORPUSCULAR HGB CONC 35 g/dl (33.0-37.0); MEAN PLATELET VOLUME 9.8 fl (7.4-10.4); MONO # 0.4 (0.1-0.6); MONO % 4.3 % (1.7-9.3); PLATELET COUNT 147 K/mm3 (130-400); RED BLOOD COUNT 4.58 M/mm3 (4.20-5.60); REDCELL DISTRIBUTION WIDTH-CV 11.8 % (11.5-14.5)
[2019-04-25 05:02] LABS: CALCIUM 9.5 mg/dL (8.4-10.2); CREATININE, serum 0.84 (0.66-1.25); MAGNESIUM 2.1 mg/dL (1.6-2.3); POTASSIUM 4.4 mmol/L (3.4-5.0)
--- NOTE | 2019-04-25 06:00 | NUR ---
PT APPEARS TO BE SLEEPING FINALLY AT THIS TIME, AUDIBLE SNORING NOTED. PT APPEARS TO BE RESTING EASILY AND IS CALM. SEE VS FLOWSHEET. CALL LIGHT WITHIN REACH.
--- NOTE | 2019-04-25 08:00 | NUR ---
Shift assessment complete at this time. Plan of care reviewed at bedside with patient. Additional time taken to address any other needs or concerns. Pt denies pain or any other discomforts. Pt reports mild to no anxiety currently. Bed in low position, call light within reach. Will continue to monitor.
--- NOTE | 2019-04-25 12:00 | NUR ---
Pt resting comfortably in bed. Pt denies pain or any other discomforts. Vitals stable at this time. Bed in low position, call light within reach, will continue to monitor.
--- NOTE | 2019-04-25 17:40 | NUR ---
Pt up to room 317 mid afternoon. Pt independent in room, denies pain, dizziness, chest pain, numbness, tingling. C/O some BROOKS/SOB, "it's normal". Pt satting at 96% on room air. Bilateral lung sounds diminished in bases, expiratory wheezing noted in upper lobes bilaterally. HR tachy, elevated BP. Pt on Q2 CIWA. Pt scored 5 on 1600 check, administered 2.5mg Valium. Pt sitting in recliner at bedside. No tremors or hallucinations reported/noted. Pedal and radial pulses strong bilaterally. RFA INT IV flushes w/o complications. No other concerns expressed.
--- NOTE | 2019-04-25 19:38 | NUR ---
Report given to TREV Ba. Q2 vitals not obtained at 1800. Will resume q2 vitals, PLUG SAW OPERATOR and RN aware. No other concerns expressed. pt sitting in recliner eating dinner at shift change.
--- NOTE | 2019-04-25 20:33 | NUR ---
Lying in bed in supine position. Inspiratory and expiratory wheezes noted on exam. Respiratory was previously in room and provided treatment. Patient says that he is not coughing anything up at this time. Denies pain. Denies further needs at this time.
--- NOTE | 2019-04-25 22:14 | NUR ---
Sitting up in chair. Not able to fall asleep. Administered Melatonin as prescribed. Patient denies further needs.
--- NOTE | 2019-04-25 23:47 | NUR ---
Lying in bed on left side with eyes closed. Respirations even and unlabored, using CPAP. No signs or symptoms of discomfort noted at this time.
[2019-04-26] VITALS (12 sets, daily range): BP systolic 105–149; BP diastolic 64–99; PULSE 79–131; TEMP 97.4–98.9
--- NOTE | 2019-04-26 02:24 | NUR ---
Lying on left side with eyes closed. Respirations even and unlabored. Patient has removed CPAP and is no longer using while sleeping. No signs or symptoms of discomfort noted at this time.
--- NOTE | 2019-04-26 05:55 | NUR ---
Lying in bed on right side with eyes closed. Respirations even and unlabored. No signs or symptoms of discomfort. Patient opens eyes when spoken to. Goes back to sleep at this time.
[2019-04-26 07:16] LABS: BASO % 0.2 % (0.0-2.0); EOS # 0.1 (0.0-0.7); EOS % 1.1 % (0-4.0); GRAN # 5.6 (1.4-6.5); GRAN % 56.8 % (42.2-75.2); HEMATOCRIT 46.1 % (42.0-52.0); HEMOGLOBIN 16.1 g/dl (13.5-18.0); LYMPH # 3.2 (1.2-3.4); LYMPH % 32.7 % (20.0-51.0); MEAN CELL VOLUME 98 fl (80.0-100.0); MEAN CORPUSCULAR HEMOGLOBIN 34 pg (27.0-31.0); MEAN CORPUSCULAR HGB CONC 35 g/dl (33.0-37.0); MEAN PLATELET VOLUME 9.8 fl (7.4-10.4); MONO # 0.8 (0.1-0.6); MONO % 8.6 % (1.7-9.3); PLATELET COUNT 156 K/mm3 (130-400); REDCELL DISTRIBUTION WIDTH-CV 11.8 % (11.5-14.5)
[2019-04-26 07:25] LABS: CALCIUM 9.6 mg/dL (8.4-10.2); CREATININE, serum 0.92 (0.66-1.25); POTASSIUM 3.9 mmol/L (3.4-5.0)
--- NOTE | 2019-04-26 08:53 | NUR ---
Pt is awake and A/Ox4, sitting up in the recliner. He is pleasant and cooperative. Pt denies any pain or discomfort. Saline lock to right FA is free of complications. Pt scored 2 on the ETOH protocol. Rash to left lower abdomen noted, pt does not recall noticing rash before today. Denies pain or itching. Pt is ambulating in hallways without difficulty. Pt denies any other needs.
--- NOTE | 2019-04-26 12:15 | NUR ---
Pt sitting up in the recliner, states that he is feeling stressed/anxious regarding move to [place]. He is teary-eyed. Scored 7 on ETOH detox, given 5 mg of PRN valium. Pt denies any other needs.
--- NOTE | 2019-04-26 14:25 | NUR ---
Pt scored a 7 on the ETOH protocol, given 5 mg of PRN valium
--- NOTE | 2019-04-26 16:13 | NUR ---
KIKO met with the patient to review discharge plan and address the patient's alcohol use. The patient reports that he is in the process of moving to [place] to be with his family. He states that he plans to move there next Monday and does not have time for any outpatient/inpatient treatment. He states that his concern is being able to afford the meds he gets prescribed and is hopeful to get a CPAP sometime. KIKO assisted the patient with completing the Financial Assistance application. KIKO contacted [facility] for more information on obtaining a CPAP through the [employer] program and spoke to the answering service. She reports that she is unsure of the process, but would leave a message for the office for Monday. KIKO informed the patient of this. He states that he will try and stop by [facility] next week. SW to continue to follow and will need to provide the patient with a med voucher.
--- NOTE | 2019-04-26 17:43 | NUR ---
Pt is sitting up in chair. Tremors remain mildly visable and pt reports continuing to feel anxious about move. Scored 7 on ETOH protocol. Given PRN valium per order.
--- NOTE | 2019-04-26 20:15 | NUR ---
Initial shift assessment done- denies pain- states is anxious/some tremors noted--up walking the halls--will give valium 5mg p.o per detox protocol, Tele tachy at 124/min, IV fluids of NS at 150cc/hr
[2019-04-27] VITALS (8 sets, daily range): BP systolic 94–127; BP diastolic 50–101; PULSE 72–120; TEMP 97–98.8
--- NOTE | 2019-04-27 06:21 | NUR ---
Quiet night- did sleep fairly well last night-- was medicated with Valium x3 during this shift per detox protocol, VSS
[2019-04-27 06:59] LABS: CALCIUM 9.3 mg/dL (8.4-10.2); CREATININE, serum 1.04 (0.66-1.25); MAGNESIUM 2.1 mg/dL (1.6-2.3); POTASSIUM 4.1 mmol/L (3.4-5.0)
--- NOTE | 2019-04-27 08:48 | NUR ---
PATIENT ASSESSMENT COMPLETED. HE IS UP IN THE CHAIR FEELING A LITTLE ANXIOUS. PRN VALIUM GIVEN PER SCALE. HE DENIES OTHER NEEDS AT THIS TIME.
[2019-04-27] MEDS ORDERED: ZEBETA 5MG5 MG PO (13:12)
[2019-04-27] MEDS ORDERED: VALIUM 5MG T5 MG/TAB PO (13:12)
[2019-04-27] MEDS ORDERED: LEXAPRO 10MG10 MG PO (13:13)
[2019-04-27] MEDS ORDERED: PREDNISONE20 MG PO (13:14)
[2019-04-27] MEDS ORDERED: NICODERM C21 MG/PATC TD (13:17)
--- NOTE | 2019-04-27 14:55 | NUR ---
PATIENT DISCHARGED TO HOME. HE HAS RECEIVED A VOUCHER FOR DISCHARGE MEDICATIONS. HE DENIES FURTHER QUESTIONS ABOUT HOSPITAL STAY OR DISCHARGE INFORMATION
--- NOTE | 2019-04-27 15:56 | NUR ---
KIKO was contacted that patient was to be discharged and that he needed a medicine voucher. KIKO contacted [facility] to make the arrangements, and faxed information to pharmacy.
== END 2019-04-27 14:55 | disposition home or self-care (01) | DRG 191 ==
LOC: ICU 18:44 → MEDICAL 04-25 14:27
PROVIDERS: Nurse Practitioner Family; Physician Assistant; Student in an Organized Health Care Education/Training Program; ADMIT Student in an Organized Health Care Education/Training Program
DX: J44.1 Chronic obstructive pulmonary disease with (acute) exacerbation (principal); F10.239 Alcohol dependence with withdrawal, unspecified; R74.0 Nonspecific elevation of levels of transaminase and lactic acid dehydrogenase [LDH]; F32.9 Major depressive disorder, single episode, unspecified; F41.9 Anxiety disorder, unspecified; I10 Essential (primary) hypertension; F17.210 Nicotine dependence, cigarettes, uncomplicated; G47.33 Obstructive sleep apnea (adult) (pediatric); Z66 Do not resuscitate; E83.42 Hypomagnesemia; Z91.14 Patient's other noncompliance with medication regimen
CPT/HCPCS: 99222-AI; 99232-AI; 99239; J1650; J2920; J3360; J3411; J7030; J7512

== ENCOUNTER 2019-05-27 21:20 | Emergency (ER) | payer SELFPAY ==
[~2019-05-27] VITALS: Ht 182.9 cm; Wt 129.5 kg
[~2019-05-27 21:20] MED LIST changes: +00186-0370-20 IH; +DOXYCYCLINE HY100 MG PO; +LEXAPRO 10MG10 MG PO; +MUCINEX 60600 MG/TA1 PO; +NICODERM C14 MG/PATC TD; +REMERON 15M15 MG/TA1 PO; +ZEBETA 5MG5 MG PO
[2019-05-27 21:45] VITALS: TEMP 98.3
[2019-05-27 22:23] LABS: BASO % 0.2 % (0.0-2.0); EOS # 0.1 (0.0-0.7); EOS % 0.6 % (0-4.0); GRAN # 8.2 (1.4-6.5); GRAN % 74.4 % (42.2-75.2); HEMATOCRIT 48.1 % (42.0-52.0); HEMOGLOBIN 16.9 g/dl (13.5-18.0); LYMPH # 1.7 (1.2-3.4); LYMPH % 15.5 % (20.0-51.0); MEAN CELL VOLUME 97 fl (80.0-100.0); MEAN CORPUSCULAR HEMOGLOBIN 34 pg (27.0-31.0); MEAN CORPUSCULAR HGB CONC 35 g/dl (33.0-37.0); MEAN PLATELET VOLUME 10.5 fl (7.4-10.4); MONO % 8.6 % (1.7-9.3); PLATELET COUNT 110 K/mm3 (130-400); RED BLOOD COUNT 4.94 M/mm3 (4.20-5.60); REDCELL DISTRIBUTION WIDTH-CV 12.4 % (11.5-14.5)
[2019-05-27 22:35] LABS: ALBUMIN 3.9 gm/dL (3.5-5.0); BILIRUBIN,TOTAL 0.9 mg/dL (0.0-1.0); C-REACTIVE PROTEIN 3.2 mg/dL (0.0-0.9); CALCIUM 9.5 mg/dL (8.4-10.2); CREATININE, serum 1.48 (0.66-1.25); POTASSIUM 4.1 mmol/L (3.4-5.0); TOTAL PROTEIN 6.9 gm/dL (6.4-8.2)
[2019-05-27 22:45] LABS: TROPONIN-I 1.34 ng/mL (0.000-0.035)
[2019-05-27] MEDS ORDERED: LIBRIUM 10M10 MG/CAP (23:04)
[2019-05-27 23:19] LABS: PROTHROMBIN TIME 11.9 SECONDS (9.7-12.8)
[2019-05-28 00:15] VITALS: BP 102/68; PULSE 97
== END 2019-05-28 00:35 | disposition short-term general hospital (02) ==
LOC: COL.ER 21:20
PROVIDERS: Nurse Practitioner
DX: R53.1 Weakness (principal); I10 Essential (primary) hypertension; J44.9 Chronic obstructive pulmonary disease, unspecified; F17.210 Nicotine dependence, cigarettes, uncomplicated
CPT/HCPCS: J1644; J2405; J3010; J7030

== ENCOUNTER 2019-06-12 07:12 | Emergency (ER) | payer SELFPAY ==
[~2019-06-12] VITALS: Ht 182.9 cm; Wt 130.0 kg
[~2019-06-12 07:12] MED LIST changes: +LIBRIUM 10M10 MG/CAP
[2019-06-12 07:21] VITALS: TEMP 99.1
[2019-06-12 08:21] LABS: BASO % 0.3 % (0.0-2.0); EOS # 0.2 (0.0-0.7); EOS % 1.4 % (0-4.0); GRAN # 7.1 (1.4-6.5); GRAN % 67.8 % (42.2-75.2); HEMATOCRIT 41.7 % (42.0-52.0); LYMPH # 2.4 (1.2-3.4); LYMPH % 22.5 % (20.0-51.0); MEAN CELL VOLUME 94 fl (80.0-100.0); MEAN CORPUSCULAR HEMOGLOBIN 34 pg (27.0-31.0); MEAN CORPUSCULAR HGB CONC 36 g/dl (33.0-37.0); MEAN PLATELET VOLUME 9.5 fl (7.4-10.4); MONO # 0.8 (0.1-0.6); MONO % 7.5 % (1.7-9.3); PLATELET COUNT 221 K/mm3 (130-400); RED BLOOD COUNT 4.44 M/mm3 (4.20-5.60); REDCELL DISTRIBUTION WIDTH-CV 12.1 % (11.5-14.5)
[2019-06-12 08:37] LABS: ALANINE AMINOTRANSFERASE 36 U/L (21-72); ALBUMIN 4.3 gm/dL (3.5-5.0); ALKALINE PHOSPHATASE 64 U/L (50-136); ANION GAP 11 mmol/L (7-16); AST,SGOT 36 U/L (15-37); BILIRUBIN,TOTAL 0.8 mg/dL (0.0-1.0); BLOOD UREA NITROGEN 8 mg/dL (9-20); CALCIUM 10.9 mg/dL (8.4-10.2); CARBON DIOXIDE 19 mmol/L (22-30); CHLORIDE 108 mmol/L (98-107); CREATININE, serum 0.87 (0.66-1.25); GLUCOSE 109 mg/dL (74-106); MAGNESIUM 1.4 mg/dL (1.6-2.3); POTASSIUM 3.9 mmol/L (3.4-5.0); SODIUM 138 mmol/L (137-145); TOTAL PROTEIN 7.6 gm/dL (6.4-8.2)
[2019-06-12 08:38] LABS: ACETAMINOPHEN < 10 ug/mL (10-30); ALCOHOL(ethanol),MEDICAL < 10 mg/dL; SALICYLATE < 1.0 mg/dL
[2019-06-12 12:43] LABS: TRICYCLIC ANTIDEPRESS URINE NEGATIVE
[2019-06-13 01:00] VITALS: BP 131/97; PULSE 106
== END 2019-06-13 01:00 ==
LOC: COL.ER 07:12
PROVIDERS: Emergency Medicine
DX: R45.851 Suicidal ideations (principal); J44.9 Chronic obstructive pulmonary disease, unspecified; I25.10 Atherosclerotic heart disease of native coronary artery without angina pectoris; F10.20 Alcohol dependence, uncomplicated
CPT/HCPCS: J2250; J3411; J3475; J7030

== ENCOUNTER 2019-06-27 18:44 | Emergency (ER) | payer SELFPAY ==
[~2019-06-27] VITALS: Ht 182.9 cm; Wt 130.0 kg
[2019-06-27 18:52] VITALS: BP 101/72; PULSE 108; TEMP 97
[2019-06-27 19:45] LABS: BASO % 0.3 % (0.0-2.0); EOS # 0.3 (0.0-0.7); EOS % 2.3 % (0-4.0); GRAN # 6.5 (1.4-6.5); HEMATOCRIT 40.8 % (42.0-52.0); HEMOGLOBIN 14.5 g/dl (13.5-18.0); LYMPH # 4.4 (1.2-3.4); LYMPH % 37.1 % (20.0-51.0); MEAN CELL VOLUME 94 fl (80.0-100.0); MEAN CORPUSCULAR HEMOGLOBIN 34 pg (27.0-31.0); MEAN CORPUSCULAR HGB CONC 36 g/dl (33.0-37.0); MEAN PLATELET VOLUME 8.7 fl (7.4-10.4); MONO # 0.6 (0.1-0.6); MONO % 4.7 % (1.7-9.3); PLATELET COUNT 162 K/mm3 (130-400); RED BLOOD COUNT 4.32 M/mm3 (4.20-5.60); REDCELL DISTRIBUTION WIDTH-CV 12.4 % (11.5-14.5)
[2019-06-27 19:49] LABS: INR 0.9 (0.8-3.0); PROTHROMBIN TIME 10.2 SECONDS (9.7-12.8)
[2019-06-27 19:52] LABS: PARTIAL THROMBOPLASTIN TIME 28.3 SECONDS (26.0-37.0)
[2019-06-27 19:59] LABS: ALANINE AMINOTRANSFERASE 44 U/L (21-72); ALBUMIN 4.2 gm/dL (3.5-5.0); ALKALINE PHOSPHATASE 48 U/L (50-136); ANION GAP 10 mmol/L (7-16); AST,SGOT 43 U/L (15-37); BILIRUBIN,TOTAL 0.3 mg/dL (0.0-1.0); BLOOD UREA NITROGEN 12 mg/dL (9-20); CALCIUM 8.8 mg/dL (8.4-10.2); CARBON DIOXIDE 24 mmol/L (22-30); CHLORIDE 111 mmol/L (98-107); CREATININE, serum 0.83 (0.66-1.25); GLUCOSE 90 mg/dL (74-106); LIPASE 140 U/L (23-300); SALICYLATE 1.7 mg/dL; SODIUM 144 mmol/L (137-145); TOTAL PROTEIN 7.1 gm/dL (6.4-8.2)
[2019-06-27 20:09] LABS: ACETAMINOPHEN < 10 ug/mL (10-30); ALCOHOL(ethanol),MEDICAL 343 mg/dL
[2019-06-27 20:11] LABS: TROPONIN-I < 0.012 ng/mL (0.000-0.035)
[2019-06-27] MEDS ORDERED: PREDNISONE20 MG PO (22:40)
[2019-06-27] MEDS ORDERED: ZITHROMAX 250M250 MG PO (22:40)
== END 2019-06-27 22:49 | disposition home or self-care (01) ==
LOC: COL.ER 18:44
PROVIDERS: Emergency Medicine
DX: J44.1 Chronic obstructive pulmonary disease with (acute) exacerbation (principal); F10.129 Alcohol abuse with intoxication, unspecified; F17.210 Nicotine dependence, cigarettes, uncomplicated; Z95.9 Presence of cardiac and vascular implant and graft, unspecified; Y90.8 Blood alcohol level of 240 mg/100 ml or more
CPT/HCPCS: J3411; J3475; J7030; J7512; Q9967